=== PATIENT | female | born 1965 | race Caucasian/White ===

== ENCOUNTER 2017-09-06 12:17 | Emergency (ER) | payer OTHER ==
--- NOTE | 2017-09-06 12:36 | EDM.PDOC ---
ED HPI GENERAL MEDICAL PROBLEM - General Chief Complaint: Lower Extremity Injury/Pain Stated Complaint: FELL/INJURED ANKLE Time Seen by Provider: 09/06/17 12:35 Source of Information: Reports: Patient - History of Present Illness INITIAL COMMENTS - FREE TEXT/NARRATIVE: HISTORY AND PHYSICAL: History of present illness: []Denies head injury or loss of consciousness presents by EMS after a fall at work slipped off to steps of a short stepladder fell to the ground denies head injury or loss of consciousness somehow her left lower extremity was folded up in the latter unable to bear weight due to pain No fever nausea vomiting chills sweats no chest pain shortness breath headache dizziness palpitation no bowel or urine symptoms denies other injury EMS had provided 2 mg of morphine in route, ankle is splinted by EMS Review of systems: As per history of present illness and below otherwise all systems reviewed and negative. Past medical history: As per history of present illness and as reviewed below otherwise noncontributory. Surgical history: As per history of present illness and as reviewed below otherwise noncontributory. Social history: No reported history of drug or alcohol abuse. Family history: As per history of present illness and as reviewed below otherwise noncontributory. Physical exam: HEENT: Atraumatic, normocephalic, pupils reactive, negative for conjunctival pallor or scleral icterus, mucous membranes moist, throat clear, neck supple, nontender, trachea midline. Lungs: Clear to auscultation, breath sounds equal bilaterally, chest nontender. Heart: S1S2, regular, negative for clicks, rubs, or JVD. Abdomen: Soft, nondistended, nontender. Negative for masses or hepatosplenomegaly. Negative for costovertebral tenderness. Pelvis: Stable nontender. Genitourinary: Deferred. Rectal: Deferred. Extremities: Atraumatic, negative for cords or calf pain. Neurovascular unremarkable. Neuro: Awake, alert, oriented. Cranial nerves II through XII unremarkable. Cerebellum unremarkable. Motor and sensory unremarkable throughout. Exam nonfocal. Left lower extremity is neurovascularly intact known patellar fracture left lower extremity is unaffected above the ankle level Diagnostics: [Left ankle [address] left ankle ] Therapeutics: []Morphine 2 mg IV provided in route Dilaudid 1 mg IV multiple doses provided Bulky splint applied Initial phone consult with podiatry at [facility], no privileges available Or to consult on phone recommended follow-up with Ernst Elizabeth at [facility], patient unable to be seen by Ernst Elizabeth until September 20 and as patient is transferred is delayed significantly and will ultimately have to be shipped mincl[place] I spoke with Dr. Bay franco on-call who recommended splinting follow-up in 2 weeks however due to intractable pain and we do not have any beds available for admission patient left be transferred for pain management Dr. Gill's excepting Impression: Left talar fracture Intractable pain Fall] Definitive disposition and diagnosis as appropriate pending reevaluation and review of above. Left Ankle Pain Score (Numeric/FACES): 8 - Related Data Allergies Allergy/AdvReac Type Severity Reaction Status Date / Time No Known Allergies Allergy Verified 02/06/14 09:16 Home Meds: Home Meds . [No Known Home Meds] 09/06/17 [History] Past Medical History - Past Health History Medical/Surgical History: Denies Medical/Surgical History Social & Family History - Tobacco Use Smoking Status *Q: Current Every Day Smoker Years of Tobacco use: 30 Packs/Tins Daily: 0.5 - Caffeine Use Caffeine Use: Reports: Coffee, Soda - Recreational Drug Use Recreational Drug Use: No Review of Systems - Review of Systems Review Of Systems: ROS reveals no pertinent complaints other than HPI. ED EXAM, GENERAL - Physical Exam Exam: See Below Course - Vital Signs Last Recorded V/S: Last Vital Signs Temp 97.7 F 09/06/17 12:28 Pulse 62 09/06/17 15:30 Resp 15 09/06/17 15:30 BP 112/68 09/06/17 15:30 Pulse Ox 98 09/06/17 15:30 - Orders/Labs/Meds Meds: Medications Discontinued Medications Generic Name Dose Route Start Last Admin Trade Name Freq PRN Reason Stop Dose Admin Hydromorphone HCl 1 mg 09/06/17 13:53 09/06/17 14:16 Dilaudid IVPUSH 09/06/17 13:54 1 mg ONETIME ONE Administration Hydromorphone HCl 1 mg 09/06/17 15:19 09/06/17 15:23 Dilaudid IVPUSH 09/06/17 15:20 1 mg ONETIME ONE Administration Hydromorphone HCl 1 mg 09/06/17 16:44 09/06/17 16:51 Dilaudid IVPUSH 09/06/17 16:45 1 mg ONETIME ONE Administration Departure - Departure Time of Disposition: 17:38 Disposition: DC/Tfer to Other 70 Condition: Fair Clinical Impression: Talar fracture - Discharge Information Referrals: PCP,None [Primary Care Provider] - Forms: ED Department Discharge
--- NOTE | 2017-09-06 13:03 | CR ---
EXAMINATION: Left ankle HISTORY: Pain COMPARISON: None TECHNIQUE: 3 views FINDINGS: There is an oblique mid talus fracture identified extending into the subtalar joint. There is lateral subluxation of the superior fragment component. Ankle mortise and talar dome appear preser alexis. The calcaneus is intact. The talonavicular joint and alignment appears grossly preserved. Euharlee ing soft tissue swelling is noted. Degenerative changes noted within the midfoot. IMPRESSION: Displaced mid intra-articular talar fracture.
[2017-09-06] MEDS ORDERED: HYDROmorphone 2 MG/ML Syringe IVPUSH ONE ×3 (13:53→18:08)
--- NOTE | 2017-09-06 14:26 | CT ---
EXAMINATION: CT of the left foot HISTORY: Fracture COMPARISON: Radiographs from the same day TECHNIQUE: Axial CT images obtained through the left foot without contrast. Coronal, sagittal, and 3- D reconstructions obtained. FINDINGS: There is a comminuted mildly fracture through the mid talus with a mildly. There is a verti tsering coronal component extending through the anterior aspect of the talar dome with approximately 5 mm of step-off at the articular surface. There is a mid sagittal component also extending through the t alar dome which is nondisplaced. There is a comminuted component extending through the posterior face t of the subtalar joint demonstrating approximately 1.6 cm of separation of fragments along the later al aspect. There are a few pockets of gas noted within the tibiotalar joint which may suggest an open component. The remaining osseous structures appear intact. Mild degenerative changes noted within th e mid foot. Moderate soft tissue swelling noted surrounding the ankle. IMPRESSION: 1. Comminuted displaced mid talus fracture extending into the tibiotalar and subtalar joints.
[2017-09-06] MEDS ORDERED: HYDROmorphone 1 MG/ML Syringe IVPUSH ONE ×2 (15:19→16:44)
[2017-09-06 18:13] VITALS: BP 98/68
== END 2017-09-06 18:22 | disposition other institution (70) ==
LOC: MW.ED 12:17
DX: S92.142A Displaced dome fracture of left talus, initial encounter for closed fracture (principal); F17.210 Nicotine dependence, cigarettes, uncomplicated; W11.XXXA Fall on and from ladder, initial encounter
CPT/HCPCS: 73610; 73700; 76377; 96374; 96376; 99285; J1170; 99282

== ENCOUNTER 2019-11-06 08:47 | Inpatient (IN) | payer BC, OTHER ==
[~2019-11-06 08:47] MED LIST: 50% Dextrose in Water 50 ML Syringe IVPUSH PRN; Albuterol 0.083% 2.5 MG/3 ML Neb Soln NEB PRN; Atropine 0.1 MG/ML 10 ML Syringe IVPUSH PRN; EPINEPHrine 1:10,000 1 MG/10 ML Syringe IVPUSH PRN; Lactated Ringers 1,000 ML IV SCH; Midazolam 1 MG/ML 2 ML SDV ONE; Naloxone 0.4 MG/ML Syringe IVPUSH PRN; Phenylephrine/Normal Saline 100 MCG/ML 10 ML Syringe ONE; Propofol 200 MG/20 ML SDV ONE; Sodium Chloride 0.9% 20 ML ONE; ePHEDrine 50 MG/ML SDV ONE; fentaNYL 100 MCG/2 ML SDV IVPUSH PRN; fentaNYL 100 MCG/2 ML SDV ONE
[2019-11-06] MEDS ORDERED: ceFAZolin/Dextrose,Iso-Osmotic 2 GM/50 ML Duplex Bag IV ONE (08:50)
[2019-11-06] MEDS ORDERED: Dermabond Prineo 1 Tube TOP ONE (09:00)
--- NOTE | 2019-11-06 09:25 | PCM48HPAN ---
Post Anesthesia Note - EVALUATION WITHIN 48HRS OF ANESTHETIC Vital Signs in Normal Range: Yes Patient Participated in Evaluation: Yes Respiratory Function Stable: Yes Airway Patent: Yes Cardiovascular Function Stable: Yes Hydration Status Stable: Yes Pain Control Satisfactory: Yes Nausea and Vomiting Control Satisfactory: Yes Mental Status Recovered: Yes Vital Signs: Last Vital Signs Temp 98 C H 11/06/19 09:00 Pulse 92 11/06/19 09:00 Resp 16 11/06/19 09:00 BP 99/66 11/06/19 09:00 Pulse Ox 98 11/06/19 09:00 - COMMENTS/OBSERVATIONS Free Text/Narrative:: no anesthesia problems
[2019-11-06] MEDS ORDERED: ceFAZolin 2 GM in Premix Bag 1 BAG IV SCH (09:30)
--- NOTE | 2019-11-06 09:30 | PCM.PREANE ---
Preanesthetic Assessment - Anesthesia/Transfusion/Family Hx Anesthesia History: Prior Anesthesia Reaction Family History of Anesthesia Reaction: No Transfusion History: No Prior Transfusion(s) Intubation History: Unknown - Review of Systems General: No Symptoms Pulmonary: No Symptoms Cardiovascular: No Symptoms Gastrointestinal: No Symptoms Neurological: No Symptoms Other: Reports: None - Physical Assessment Vital Signs: Last Vital Signs Temp 98 C H 11/06/19 09:00 Pulse 92 11/06/19 09:00 Resp 16 11/06/19 09:00 BP 99/66 11/06/19 09:00 Pulse Ox 98 11/06/19 09:00 Height: 5 ft 6 in Weight: 63.503 kg ASA Class: 2 Mental Status: Alert & Oriented x3 Airway Class: Mallampati = 1 Dentition: Reports: Normal Dentition Thyro-Mental Finger Breadths: 3 Mouth Opening Finger Breadths: 3 ROM/Head Extension: Full Lungs: Clear to Auscultation, Normal Respiratory Effort Cardiovascular: Regular Rate, Regular Rhythm - Allergies Allergies/Adverse Reactions: Allergies Allergy/AdvReac Type Severity Reaction Status Date / Time No Known Allergies Allergy Verified 02/06/14 09:16 - Blood Blood Available: No - Anesthesia Plan Pre-Op Medication Ordered: None - Acknowledgements Anesthesia Type Planned: Spinal (general anesthesia back-up) Pt an Appropriate Candidate for the Planned Anesthesia: Yes Alternatives and Risks of Anesthesia Discussed w Pt/Guardian: Yes Pt/Guardian Understands and Agrees with Anesthesia Plan: Yes PreAnesthesia Questionnaire - Past Health History Medical/Surgical History: Denies Medical/Surgical History HEENT History: Reports: Cataract, Other (See Below) Other HEENT History: wears glasses UNIT AID History: Reports: Musculoskeletal History: Reports: Fracture, Osteoarthritis Other Musculoskeletal History: hx of fx ankle Neurological History: Reports: Other (See Below) Other Neuro History: hx of motion sickness Psychiatric History: Reports: Depression - Past Surgical History Head Surgeries/Procedures: Reports: None HEENT Surgical History: Reports: Cataract Surgery GI Surgical History: Reports: Appendectomy, Cholecystectomy, Other (See Below) Other GI Surgeries/Procedures: Abdominoplasty Female Surgical History: Reports: Breast Biopsy, Breast Reduction, Hysterectomy, Oophorectomy, Tubal Ligation Musculoskeletal Surgical History: Reports: ORIF Other Musculoskeletal Surgeries/Procedures:: ORIF fx left ankle - has hardware, tendon repair right wrist - SUBSTANCE USE Smoking Status *Q: Current Every Day Smoker (6-8 cigarettes per day) Tobacco Use Within Last Twelve Months: Cigarettes Recreational Drug Use History: No - HOME MEDS Home Medications: Home Meds Calcium Carb, Citrate/Vit D3 [Calcium + D3 ER Tablet] 1 tab PO DAILY 10/31/19 [ History] - CURRENT (IN HOUSE) MEDS Current Meds: Current Medications Albuterol (Proventil Neb Soln) 2.5 mg NEB ONETIME PRN PRN Reason: Wheezing Atropine Sulfate (Atropine 0.1 Mg/Ml) 1 mg IVPUSH ASDIRECTED PRN PRN Reason: Hypo-Perfusion Dextrose/Water (Dextrose 50% In Water) 50 ml IVPUSH ASDIRECTED PRN PRN Reason: Hypoglycemia Epinephrine HCl (Epinephrine 1:10,000) 1 mg IVPUSH ASDIRECTED PRN PRN Reason: ACLS Guidelines Fentanyl (Sublimaze) 50 mcg IVPUSH Q5M PRN PRN Reason: Pain Lactated Ringer's (Ringers, Lactated) 1,000 mls @ 100 mls/hr IV ASDIRECTED MAVIS Cefazolin Sodium/Dextrose 2 gm (/ Premix) 50 mls @ 100 mls/hr IV ONETIME MAVIS Naloxone HCl (Narcan) 0.1 mg IVPUSH ASDIRECTED PRN PRN Reason: Respiratory Depression Tranexamic Acid (Cyklokapron) 2,000 mg IV ONETIME ONE Stop: 11/06/19 09:31 Discontinued Medications Atropine Sulfate (Atropine 0.1 Mg/Ml) 0.5 mg IVPUSH ASDIRECTED PRN PRN Reason: Hypo-perfusion Stop: 11/06/19 07:35 Cefazolin Sodium/Dextrose (Ancef) Confirm Administered Dose 2 gm IV .STK-MED ONE Stop: 11/06/19 08:51 Ephedrine Sulfate (Ephedrine Sulfate) Confirm Administered Dose 50 mg .ROUTE .STK-MED ONE Stop: 11/06/19 07:16 Fentanyl (Sublimaze) Confirm Administered Dose 100 mcg .ROUTE .STK-MED ONE Stop: 11/06/19 07:16 Sodium Chloride (Normal Saline) Confirm Administered Dose 20 mls @ as directed .ROUTE .STK-MED ONE Stop: 11/06/19 07:17 Midazolam HCl (Versed 1 Mg/Ml) Confirm Administered Dose 2 mg .ROUTE .STK-MED ONE Stop: 11/06/19 07:16 Octyl Cyanoacrylate (Dermabond Prineo) 1 applic TOP .STK-MED ONE Stop: 11/06/19 09:01 Phenylephrine HCl (Phenylephrine In Ns 100 Mcg/Ml) Confirm Administered Dose 1 mg .ROUTE .STK-MED ONE Stop: 11/06/19 07:16 Propofol (Diprivan 20 Ml) Confirm Administered Dose 200 mg .ROUTE .STK-MED ONE Stop: 11/06/19 07:16
[2019-11-06] MEDS ORDERED: Midazolam 1 MG/ML 2 ML SDV ONE (10:05)
[2019-11-06] MEDS ORDERED: Bupivacaine 0.75%/D5W 2 ML Amp ONE (10:11)
--- NOTE | 2019-11-06 11:45 | PCM.OPNOTE ---
- General Post-Op/Procedure Note Date of Surgery/Procedure: 11/06/19 Operative Procedure(s): right anterior total hip arthroplasty Pre Op Diagnosis: right hip osteoarthritis Post-Op Diagnosis: same Anesthesia Technique: Moderate Sedation, Spinal Primary Surgeon: Romain Herrera Mai Clinical Social Worker: Rosa M Jacobs Pathology: femoral head EBL in mLs: 300 Complications: none Condition: Good
[2019-11-06] MEDS ORDERED: Ondansetron 4 MG/2 ML SDV IVPUSH PRN (11:56)
[2019-11-06] MEDS ORDERED: Aluminum Hydroxide/Magnesium Hydroxide/Simethicone Susp 30 ML Cup PO PRN (11:56)
[2019-11-06] MEDS ORDERED: Morphine 2 MG/ML Syringe IVPUSH PRN (11:56)
[2019-11-06] MEDS ORDERED: Docusate Sodium 100 MG Cap PO PRN (11:56)
[2019-11-06] MEDS ORDERED: diphenhydrAMINE 25 MG Cap PO PRN (11:56)
[2019-11-06] MEDS ORDERED: Bisacodyl 10 MG Supp RECTAL PRN (11:56)
[2019-11-06] MEDS ORDERED: Sodium Chloride 0.9% 2.5 ML Syringe FLUSH PRN (11:56)
[2019-11-06] MEDS ORDERED: Sodium Chloride 0.9% 10 ML Syringe FLUSH PRN (11:56)
[2019-11-06] MEDS: Ketorolac 30 MG/ML SDV IVPUSH SCH ×3 (12:15→23:53)
--- NOTE | 2019-11-06 12:18 | PCM.POSTAN ---
POST ANESTHESIA ASSESSMENT - MENTAL STATUS Mental Status: Alert - VITAL SIGNS Vital Signs: Last Vital Signs Temp 36.6 C 11/06/19 11:51 Pulse 65 11/06/19 12:11 Resp 14 11/06/19 12:11 BP 105/53 L 11/06/19 12:11 Pulse Ox 98 11/06/19 12:11 - RESPIRATORY Respiratory Status: Respiratory Rate WNL - CARDIOVASCULAR CV Status: Pulse Rate WNL - GASTROINTESTINAL GI Status: No Symptoms - POST OP HYDRATION Hydration Status: Adequate & Stable
[2019-11-06] MEDS: Acetaminophen/HYDROcodone 325-7.5 MG Tab PO PRN (16:53)
--- NOTE | 2019-11-06 17:47 | OR ---
SURGEON: Romain Saavedra MD DATE OF PROCEDURE: 11/06/2019 PRIMARY SURGEON: Romain Saavedra MD. SCRAP PICKER: LUIS A Tabares REASON SCRAP PICKER WAS NECESSARY: Beverage Host was required for patient transportation, positioning, retraction, dislocating and relocating the leg, and closing. PREOPERATIVE DIAGNOSIS: Right hip osteoarthritis. POSTOPERATIVE DIAGNOSIS: Right hip osteoarthritis. OPERATION PERFORMED: Right anterior total hip arthroplasty. ANESTHESIA: Spinal and sedation. COMPLICATION: None. ESTIMATED BLOOD LOSS: 300 mL. SPECIMENS: Femoral head. IMPLANTS: Lauro Continuum trabecular metal shell with cluster holes, 50 mm outer diameter; one 6.5 x 30 mm neck bone screw; Vivacit-E neutral liner, 32 mm inner diameter; M/L taper press-fit stem, size 5, extended offset, reduced neck length; BIOLOX Delta ceramic femoral head, 32 mm diameter, 0 neck length. INDICATIONS: The patient is a 54-year-old female with severe arthritis of her hips, right greater than left. She has failed conservative management, modification therapy, injections, and has chronic pain on a daily basis hindering activities and ADLs. She wished to undergo replacement. She understands the risks, benefits, alternatives, and complications of procedure including, but not limited to, infection, neurovascular injury, continued pain, nonresolution of symptoms, DVT, PE, stroke, HI, , leg-length discrepancy, fracture dislocation, and she wished to proceed. She will be placed on aspirin postoperatively for DVT prophylaxis. DESCRIPTION OF PROCEDURE: The patient seen in preoperative area. Operative extremity was marked. She was transferred to operating room, spinal anesthetic was given, and a Amor catheter was placed. She was given sedation. Legs were placed in leg bars on the Mirza table and the right hip was prepped and draped in usual sterile fashion using alcohol followed by ChloraPrep with Ioban covering. Formal time-out was taken, identifying the correct patient, procedure, and extremity. She received preoperative antibiotics with Ancef 2 g and TXA. An 8 cm incision starting just lateral to the ASIS going obliquely down the femur was made. Dissection was carried down through the subcutaneous tissues. Hemostasis was obtained. The fascia overlying the TFL lateral to the lateral femoral cutaneous nerve was opened and the interval between the TFL and sartorius and deep between the abductors and rectus was opened, the vastus lateralis fascia was opened, and the anterior vessels were coagulated. The indirect head of the rectus was released. A deep Kenneth tractor was placed. The capsule was held and tagged with 2 sutures and the retractor was placed deep. There was noted to be severe arthritis and large osteophytes. The neck was cut from saddle region to about 0.5 to 1 cm above the lesser trochanter. The head was removed. There was severe arthritis and severe synovitis. A synovectomy was performed. The inferior capsule was released. The labral remnants and pulvinar were removed. Head measured approximately 46 and sequential reaming from 46 to 50 mm going slightly superomedial. Good fit and fill were performed. She did not have very much medial wall to get medial. There was good bleeding cancellous bone. After planing the bed to make sure it was level, a Continuum trabecular metal shell with cluster holes was impacted in 10 degrees of anteversion and 40 degrees of abduction. This had an excellent press fit. There was some uncovering posterolateral. One screw was placed very superiorly after drilling. The wound was irrigated out. The neutral liner was impacted. There was no uncovering of the shell anteriorly. The femoral lift was then placed and the leg was externally rotated, abducted, and extended. Superior capsule, obturator internus and piriformis were released. The central canal finder was utilized and the hip was sequentially broached from size 4 to size 5 following the [place] version. This had an excellent fit and fill. It was trial reduced based on preoperative templating with a reduced neck, extended offset, and a 0 head. Printed overlay technique with the opposite hip showed equal leg length and offset compared to the opposite side. There was no Shuck and had a stable range of motion. Therefore, the hip was dislocated. Trial femoral component was removed. The wound was thoroughly irrigated and a size 5 extended offset, reduced neck length M/L taper stem was impacted following the [place] version. This was the same spot as the trial liner and therefore a 32 mm 0 neck length head was impacted after cleaning the Akhtar taper. The hip was relocated. Two tag sutures were tied together. The fascia was closed with #1 Vicryl, subcutaneous tissues with 2-0 Stratafix, skin with running 4-0 Monocryl. Dermabond tape and an Aquacel dressing were placed. The patient was transferred to recovery room in stable condition. Sponge and needle counts were correct at the end of the case. There were no complications. GULSHAN / AMPARO /[id number]
[2019-11-06] MEDS: ceFAZolin 2 GM in Premix Bag 1 BAG IV SCH (18:01)
[2019-11-07] MEDS: ceFAZolin 2 GM in Premix Bag 1 BAG IV SCH (02:47)
--- NOTE | 2019-11-07 07:12 | PCM.SN ---
- Free Text/Narrative Note: Subjective: doing well, pain controlled. has ambulated. tolerating oral. no CP/ SOB. Objective: afebrile, vital signs stable right hip - dressing clean/dry/intact, minimal swelling in thigh, no swelling distally, no drainage. 2+ DP bilaterally. normal sensation and motor distally Hgb 11.0 Assessment/plan: - full weight bearing, PT, walker - avoid hyperextension with external rotation - leave dressing on, may shower - ecotrin/SCDs for DVT prophylaxis - to home today
[2019-11-07 07:35] VITALS: BP 95/47; PULSE 69
[2019-11-07] MEDS: Acetaminophen/HYDROcodone 325-7.5 MG Tab PO PRN (08:46)
[2019-11-07] MEDS ORDERED: Polyethylene Glycol 3350 Powder 17 GM Packet PO SCH (09:00)
[2019-11-07] MEDS ORDERED: Aspirin 325 MG Tab PO SCH (09:00)
[2019-11-07] MEDS ORDERED: Famotidine 20 MG Tab PO SCH (09:00)
--- NOTE | 2019-11-07 10:28 | PCM48HPAN ---
Post Anesthesia Note - EVALUATION WITHIN 48HRS OF ANESTHETIC Vital Signs in Normal Range: Yes Patient Participated in Evaluation: Yes Respiratory Function Stable: Yes Airway Patent: Yes Cardiovascular Function Stable: Yes Hydration Status Stable: Yes Pain Control Satisfactory: Yes (Minimal ache.) Nausea and Vomiting Control Satisfactory: Yes Mental Status Recovered: Yes Vital Signs: Last Vital Signs Temp 37.2 C 11/07/19 07:34 Pulse 69 11/07/19 07:34 Resp 13 11/07/19 07:34 BP 95/47 L 11/07/19 07:34 Pulse Ox 93 L 11/07/19 07:34 - COMMENTS/OBSERVATIONS Free Text/Narrative:: Doing well. No problems noted at present.
--- NOTE | 2019-11-07 11:00 | CR ---
Right hip: 2 fluoroscopic spot views were obtained of the hip. Comparison: Previous pelvis and bilateral hip exam of 09/22/19. Study shows right hip prosthesis placement. Underlying bony structures are grossly intact. Fluoroscopy time given as 25.6 seconds. Impression: 1. Procedural study as noted above. Diagnostic code #2 This report was dictated in [place] Standard Time
--- NOTE | 2019-11-08 12:52 | PCM.DCSUM1 ---
Discharge Summary - Hospital Course Brief History: Is admitted for elective right hip replacement. Diagnosis: Stroke: No - Discharge Data Discharge Date: 11/07/19 Discharge Disposition: Home, Self-Care 01 Condition: Good - Referral to Home Health Primary Care Physician: Dionisio Coats, PT - Patient Summary/Data Operative Procedure(s) Performed: right anterior total hip arthroplasty Consults: Consultations 11/06/19 11:57 PT Evaluation and Treatment [CONS] Routine Hospital Course: Patient was admitted and underwent uneventful right hip replacement. Postoperatively she was admitted to the floor her pain was controlled and her diet was advanced. She did well postoperatively and was subsequently discharged home on postoperative day #1. - Patient Instructions Diet: Usual Diet as Tolerated Activity: Apply Ice, Full Weight Bearing, No Strenuous Activities Driving: Do Not Drive Showering/Bathing: May Shower Wound/Incision Care: Keep Operative Site/Wound Site Clean and Dry, Do NOT Change Dressing - Discharge Plan *PRESCRIPTION DRUG MONITORING PROGRAM REVIEWED*: No *COPY OF PRESCRIPTION DRUG MONITORING REPORT IN PATIENT NELLY: No Home Medications: Home Meds Calcium Carb, Citrate/Vit D3 [Calcium + D3 ER Tablet] 1 tab PO DAILY 10/31/19 [ History] Patient Handouts: Acetaminophen; Hydrocodone tablets or capsules, Total Hip Replacement, Care After, [id number], Aspirin capsules or tablets extended release Referrals: Rosa M Jacobs NP [Nurse Practitioner] - 11/21/19 9:30 am - Discharge Summary/Plan Comment DC Time >30 min.: No - Patient Data Vitals - Most Recent: Last Vital Signs Temp 37.2 C 11/07/19 07:34 Pulse 69 11/07/19 07:34 Resp 13 11/07/19 07:34 BP 95/47 L 11/07/19 07:34 Pulse Ox 93 L 11/07/19 07:34 Weight - Most Recent: 63.503 kg Med Orders - Current: Current Medications Discontinued Medications Hydrocodone Bitart/Acetaminophen ([place] 325-7.5 Mg) 1 - 2 tab PO Q6H PRN PRN Reason: Pain Last Admin: 11/07/19 08:46 Dose: 1 tab Al Hydroxide/Mg Hydroxide (Mag-Al Plus) 30 ml PO Q4H PRN PRN Reason: Indigestion Albuterol (Proventil Neb Soln) 2.5 mg NEB ONETIME PRN PRN Reason: Wheezing Aspirin (Aspirin) 325 mg PO BID [facility] Last Admin: 11/07/19 08:46 Dose: 325 mg Atropine Sulfate (Atropine 0.1 Mg/Ml) 0.5 mg IVPUSH ASDIRECTED PRN PRN Reason: Hypo-perfusion Stop: 11/06/19 07:35 Atropine Sulfate (Atropine 0.1 Mg/Ml) 1 mg IVPUSH ASDIRECTED PRN PRN Reason: Hypo-Perfusion Bisacodyl (Dulcolax) 10 mg RECTAL DAILY PRN PRN Reason: Constipation Bupivacaine HCl/Dextrose (Marcaine 0.75% Spinal) Confirm Administered Dose 4 ml .ROUTE .STK-MED ONE Stop: 11/06/19 10:12 Cefazolin Sodium/Dextrose (Ancef) Confirm Administered Dose 2 gm IV .STK-MED ONE Stop: 11/06/19 08:51 Dextrose/Water (Dextrose 50% In Water) 50 ml IVPUSH ASDIRECTED PRN PRN Reason: Hypoglycemia Diphenhydramine HCl (Benadryl) 25 - 50 mg PO Q6H PRN PRN Reason: Itching Docusate Sodium (Colace) 100 mg PO BID PRN PRN Reason: Constipation Ephedrine Sulfate (Ephedrine Sulfate) Confirm Administered Dose 50 mg .ROUTE .STK-MED ONE Stop: 11/06/19 07:16 Epinephrine HCl (Epinephrine 1:10,000) 1 mg IVPUSH ASDIRECTED PRN PRN Reason: ACLS Guidelines Famotidine (Pepcid) 40 mg PO DAILY [facility] Last Admin: 11/07/19 08:46 Dose: 40 mg Fentanyl (Sublimaze) Confirm Administered Dose 100 mcg .ROUTE .STK-MED ONE Stop: 11/06/19 07:16 Fentanyl (Sublimaze) 50 mcg IVPUSH Q5M PRN PRN Reason: Pain Lactated Ringer's (Ringers, Lactated) 1,000 mls @ 100 mls/hr IV ASDIRECTED [facility] Last Admin: 11/06/19 09:10 Dose: 100 mls/hr Cefazolin Sodium/Dextrose 2 gm (/ Premix) 50 mls @ 100 mls/hr IV ONETIME [facility] Sodium Chloride (Normal Saline) Confirm Administered Dose 20 mls @ as directed .ROUTE .STK-MED ONE Stop: 11/06/19 07:17 Cefazolin Sodium/Dextrose 2 gm (/ Premix) 50 mls @ 100 mls/hr IV Q8H [facility] Stop: 11/07/19 03:29 Last Admin: 11/07/19 02:47 Dose: 100 mls/hr Ketorolac Tromethamine (Toradol) 30 mg IVPUSH Q6H [facility] Stop: 11/07/19 05:00 Last Admin: 11/06/19 23:53 Dose: 30 mg Midazolam HCl (Versed 1 Mg/Ml) Confirm Administered Dose 2 mg .ROUTE .STK-MED ONE Stop: 11/06/19 07:16 Midazolam HCl (Versed 1 Mg/Ml) Confirm Administered Dose 2 mg .ROUTE .STK-MED ONE Stop: 11/06/19 10:06 Morphine Sulfate (Morphine) 1 - 2 mg IVPUSH Q3H PRN PRN Reason: Pain Naloxone HCl (Narcan) 0.1 mg IVPUSH ASDIRECTED PRN PRN Reason: Respiratory Depression Octyl Cyanoacrylate (Dermabond Prineo) 1 applic TOP .STK-MED ONE Stop: 11/06/19 09:01 Ondansetron HCl (Zofran) 4 mg IVPUSH Q6H PRN PRN Reason: Nausea/Vomiting Phenylephrine HCl (Phenylephrine In Ns 100 Mcg/Ml) Confirm Administered Dose 1 mg .ROUTE .STK-MED ONE Stop: 11/06/19 07:16 Polyethylene Glycol (Miralax) 17 gm PO DAILY [facility] Last Admin: 11/07/19 08:46 Dose: 17 gm Propofol (Diprivan 20 Ml) Confirm Administered Dose 200 mg .ROUTE .STK-MED ONE Stop: 11/06/19 07:16 Sodium Chloride (Saline Flush) 10 ml FLUSH ASDIRECTED PRN PRN Reason: Keep Vein Open Sodium Chloride (Saline Flush) 2.5 ml FLUSH ASDIRECTED PRN PRN Reason: Keep Vein Open Tranexamic Acid (Cyklokapron) 2,000 mg IV ONETIME ONE Stop: 11/06/19 09:31 Last Admin: 11/06/19 12:48 Dose: Not Given Tranexamic Acid (Cyklokapron) Confirm Administered Dose 2,000 mg .ROUTE .STK- MED ONE Stop: 11/06/19 10:25
== END 2019-11-07 13:20 | disposition home or self-care (01) | DRG 470 ==
LOC: MW.MS 08:47
PROVIDERS: ADMIT Orthopaedic Surgery; ATTEND Orthopaedic Surgery
PROC: 0SR901A Replacement of Right Hip Joint with Metal Synthetic Substitute, Uncemented, Open Approach (ICD-10-PCS; principal; 2019-11-06)
DX: M16.11 Unilateral primary osteoarthritis, right hip (principal); F32.9 Major depressive disorder, single episode, unspecified
CPT/HCPCS: 36415; 76000; 76000-26; 85014; 85018; 97110-GP; 97116-GP; 97161-GP; A9270-GY; C1713; C1776; J0690; J1885; J2250; J2370; J2704; J3010; J7120